=== PATIENT | female | born 2000 | race Caucasian/White ===

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

== ENCOUNTER 2019-01-17 22:00 | Outpatient (CLI) | payer OTHER ==
[~2019-01-17] VITALS: Ht 172.7 cm; Wt 85.2 kg
[~2019-01-17 22:00] MED LIST: CALC600T24 PO; CEPH-443 PO; CLOT30CR24 TOP; PREN-47 PO
[2019-01-17 23:49] VITALS: Ht 172.7 cm; Wt 85.2 kg
[2019-01-17 23:51] VITALS: BP 117/72
--- NOTE | 2019-01-18 01:48 | PN ---
Triage Information Date/Time Reason for visit: Vag spotting / bleeding Weeks of Gestation 35 weeks /Para Diabetes: none Hypertention: none Objective Vital Signs Date Temp Pulse Resp B/P (MAP) Pulse Ox O2 O2 Flow FiO2 Time Delivery Rate 01/17/19 98.5 98 20 117/72 Room Air 23:51 (87) Heart Rate: 120's Heart Rate Comments Reactive Results/Medications Result Diagram: 01/17/19 2329 Results 24 hrs Laboratory Tests Test 01/17/19 22:10 01/17/19 23:29 Urine Color YELLOW Urine Clarity SLIGHTLY CLOUDY A Urine pH 6.0 Urine Specific [place] 1.013 Urine Ketones NEGATIVE Urine Nitrite NEGATIVE Urine Bilirubin NEGATIVE Urine Urobilinogen NEGATIVE Urine Leukocyte Esterase 1+ H Urine Microscopic RBC 0 Urine Microscopic WBC 6 H Urine Squamous Epithelial Cells FEW Urine Hemoglobin 2+ H Urine Glucose NEGATIVE Urine Total Protein NEGATIVE Urine Opiates Screen Negative Urine Barbiturates Negative Urine Amphetamines Screen Negative Urine Benzodiazepines Screen Negative Urine Cocaine Screen Negative Urine Cannabinoids Negative White Blood Count 7.7 # Red Blood Count 3.31 L Hemoglobin 9.2 L Hematocrit 28.3 L Mean Corpuscular Volume 85.5 Mean Corpuscular Hemoglobin 27.8 L Mean Corpuscular Hemoglobin Concent 32.5 Red Cell Distribution Width 13.8 Platelet Count 204 Mean Platelet Volume 9.5 Immature Granulocytes % 0.400 Neutrophils % 68.8 Lymphocytes % 21.4 Monocytes % 8.0 Eosinophils % 1.0 Basophils % 0.4 Nucleated Red Blood Cells % 0.0 Immature Granulocytes # 0.030 Neutrophils # 5.3 Lymphocytes # 1.6 Monocytes # 0.6 Eosinophils # 0.1 Basophils # 0.0 Nucleated Red Blood Cells # 0.0 Imaging Results OB ultrasound normal Disposition: Discharge NELIDA ARTEAGA MD Jan 18, 2019 01:48
--- NOTE | 2019-01-18 08:52 | TRIAGE ---
OB Triage Datetime Report Generated by CPN: 01/18/2019 08:51 Datetime: 01/18/2019 01:45 Stage of : OB Triage Labor Evaluation Frequency: None Monitor Mode: External Resting Tone [place]: Relaxed Heart Rate FHR Baseline Rate: 135 Monitor Mode: External US Variability: Moderate 6-25 bpm Accelerations: 15X15 Decelerations: None Datetime: 01/18/2019 01:00 Stage of : OB Triage Labor Evaluation Frequency: Occasional Monitor Mode: External Duration (sec)2399: 40-60 Quality: Mild Pattern: Normal: <= 5 Contractions in 10 Minutes Resting Tone [place]: Relaxed Heart Rate FHR Baseline Rate: 145 Monitor Mode: External US Variability: Moderate 6-25 bpm Accelerations: 15X15 Decelerations: None Datetime: 01/18/2019 00:00 Stage of : OB Triage Labor Evaluation Frequency: Occasional Monitor Mode: External Duration (sec)2399: 40-70 Quality: Mild Pattern: Normal: <= 5 Contractions in 10 Minutes Resting Tone [place]: Relaxed Heart Rate FHR Baseline Rate: 150 Monitor Mode: External US Variability: Moderate 6-25 bpm Accelerations: 15X15 Decelerations: Variable (Annotations: possible) Datetime: 01/17/2019 23:00 Stage of : OB Triage Labor Evaluation Frequency: Irregular Monitor Mode: External Duration (sec)2399: 40-80 Quality: Mild Pattern: Normal: <= 5 Contractions in 10 Minutes Resting Tone [place]: Relaxed Heart Rate FHR Baseline Rate: 140 Monitor Mode: External US Variability: Moderate 6-25 bpm Accelerations: 15X15 Decelerations: Variable (Annotations: possible x1) Datetime: 01/17/2019 22:14 Stage of : OB Triage Assessment Type: Triage Maternal Assessment Level of Consciousness: Fully Conscious DTR's/Clonus: DTRs 2+; No Clonus Headache: Denies Blurred Vision: No Respiratory Effort: Unlabored; Regular Rhythm; Equal Expansion Breath Sounds, Left: Clear and Equal Breath Sounds, Right: Clear and Equal Nausea/Vomiting: Denies RUQ Epigastric Pain: Denies Lower Extremities Edema: None Degree: None Upper Extremities Edema: None Degree: None Facial Edema: None Temperature Route: Oral Fall Risk Assessment History of Falling: (0) No Secondary Diagnosis: (0) No Ambulatory Aid: (0) Bedrest/Nurse Assist IV Therapy: (0) No Gait: (0) Normal/Bedrest/Immobile Mental Status: (0) Oriented to Own Ability Fall Score: 0 Fall Risk Score Definition: No Risk: No action required Monitor Mode: External Contraction Comments: [place] applied Heart Rate FHR Baseline Rate: 150 Monitor Mode: External US Comments: EFM applied Pain Assessment Pain Scale: 4 Pain Presence: Intermittent Pain Type: Cramping Pain Location: Abdomen; Back Pain Relief Measures: Comfort Measures Datetime: 01/17/2019 22:11 Time of Arrival: 01/17/2019 21:54 EGA: 34.6 Arrived By: Wheelchair Arrived From: Home Chief Complaint: Post coital bleeding Movement: Present Contractions: Irregular Rupture of Membranes: Denies Vaginal Bleeding: Small Vaginal Discharge: Denies Recent Sexual Intercouse: Yes Abdominal Trauma: Not Applicable Patient Complaints: Cramping; Back Pain Time Provider Notified: 01/17/2019 23:01 Provider Notified: Initial Plan: U/S for EFW, JONATHAN, _ placenta location. UA, CBC, Type _ Screen, urine drug screen Datetime: 10/28/2018 20:30 Stage of : Antepartum Datetime: 10/28/2018 20:18 Stage of : Antepartum Datetime: 10/28/2018 20:10 Stage of : Antepartum Datetime: 10/28/2018 20:00 Stage of : Antepartum Datetime: 10/28/2018 19:40 Stage of : Antepartum Assessment Type: Ongoing Assessment Maternal Assessment Level of Consciousness: Fully Conscious DTR's/Clonus: DTRs 2+; No Clonus Headache: Denies Blurred Vision: No Respiratory Effort: Unlabored; Regular Rhythm; Equal Expansion Breath Sounds, Left: Clear and Equal Breath Sounds, Right: Clear and Equal Nausea/Vomiting: Denies RUQ Epigastric Pain: Denies Lower Extremities Edema: None Degree: None Upper Extremities Edema: None Degree: None Facial Edema: None Temperature Route: Oral Fall Risk Assessment History of Falling: (0) No Secondary Diagnosis: (0) No Ambulatory Aid: (0) Bedrest/Nurse Assist IV Therapy: (0) No Gait: (0) Normal/Bedrest/Immobile Mental Status: (0) Oriented to Own Ability Fall Score: 0 Fall Risk Score Definition: No Risk: No action required Contraction Comments: PT DENIES CRAMPING Comments: PT STATES + FM Pain Presence: None/Denies Pain Type: N/A Vaginal Exam Membrane Status: Intact Vaginal Bleeding: None Datetime: 10/28/2018 18:00 Stage of : Antepartum Labor Evaluation Frequency: 0/hr Monitor Mode: External Datetime: 10/28/2018 17:00 Stage of : Antepartum Labor Evaluation Frequency: 0/hr Monitor Mode: External Datetime: 10/28/2018 16:48 Pain Presence: None/Denies Datetime: 10/28/2018 16:09 Stage of : Antepartum Maternal Assessment Level of Consciousness: Fully Conscious Headache: Denies Nausea/Vomiting: Denies RUQ Epigastric Pain: Denies Temperature Route: Oral Resting Tone [place]: Relaxed Datetime: 10/28/2018 16:00 Stage of : Antepartum Labor Evaluation Frequency: 0/hr Monitor Mode: External Datetime: 10/28/2018 15:44 Maternal Assessment Level of Consciousness: Fully Conscious Headache: Denies Blurred Vision: No Respiratory Effort: Unlabored Nausea/Vomiting: Denies Pain Presence: None/Denies Datetime: 10/28/2018 15:00 Stage of : Antepartum Labor Evaluation Frequency: 0/hr Monitor Mode: External Datetime: 10/28/2018 14:00 Stage of : Antepartum Labor Evaluation Frequency: 0/hr Monitor Mode: External Datetime: 10/28/2018 13:00 Stage of : Antepartum Labor Evaluation Frequency: 0/hr Monitor Mode: External Datetime: 10/28/2018 12:06 Stage of : Antepartum Labor Evaluation Frequency: 0/hr Monitor Mode: External Datetime: 10/28/2018 11:44 Maternal Assessment Level of Consciousness: Fully Conscious Headache: Denies Blurred Vision: No Respiratory Effort: Unlabored Nausea/Vomiting: Denies RUQ Epigastric Pain: Denies Pain Presence: Constant Pain Assessment Comments: unchanged Datetime: 10/28/2018 11:05 Stage of : Antepartum Labor Evaluation Frequency: 0/hr Monitor Mode: External Datetime: 10/28/2018 10:10 Stage of : Antepartum Labor Evaluation Frequency: 0/hr Monitor Mode: External Monitor Mode: External US Comments: fht's 140's approp. for ega of 23.2 today Datetime: 10/28/2018 09:09 Stage of : Antepartum Maternal Assessment Level of Consciousness: Fully Conscious Headache: Denies Nausea/Vomiting: Denies RUQ Epigastric Pain: Denies Labor Evaluation Frequency: 0/hr Resting Tone [place]: Relaxed Vaginal Bleeding: None Datetime: 10/28/2018 08:19 Stage of : Antepartum Maternal Assessment Level of Consciousness: Fully Conscious Headache: Denies Nausea/Vomiting: Denies RUQ Epigastric Pain: Denies Resting Tone [place]: Relaxed Contraction Comments: pt. denies Comments: pt. acknowledges movement Vaginal Bleeding: None Datetime: 10/28/2018 07:22 Pain Presence: Constant Pain Type: Dull Pain Location: Right Flank; Left Flank Pain Relief Measures: Comfort Measures Datetime: 10/28/2018 07:20 Stage of : Antepartum Temperature Route: Oral Datetime: 10/28/2018 06:07 Stage of : Antepartum Temperature Route: Oral Pain Presence: None/Denies Datetime: 10/27/2018 22:05 Heart Rate FHR Baseline Rate: 145 Monitor Mode: External US Datetime: 10/27/2018 19:29 Stage of : Antepartum Assessment Type: Ongoing Assessment Maternal Assessment Level of Consciousness: Fully Conscious DTR's/Clonus: DTRs 2+; No Clonus Headache: Denies Blurred Vision: No Respiratory Effort: Unlabored; Regular Rhythm; Equal Expansion Breath Sounds, Left: Clear and Equal Breath Sounds, Right: Clear and Equal Nausea/Vomiting: Denies RUQ Epigastric Pain: Denies Lower Extremities Edema: None Degree: None Upper Extremities Edema: None Degree: None Facial Edema: None Temperature Route: Oral Fall Risk Assessment History of Falling: (0) No Secondary Diagnosis: (0) No Ambulatory Aid: (0) Bedrest/Nurse Assist IV Therapy: (0) No Gait: (0) Normal/Bedrest/Immobile Mental Status: (0) Oriented to Own Ability Fall Score: 0 Fall Risk Score Definition: No Risk: No action required Pain Presence: None/Denies Datetime: 10/27/2018 18:25 Pain Presence: Constant Pain Type: Dull Pain Location: Right Flank; Left Flank Pain Assessment Comments: decreased rebound tenderness when dr. eshaghian palpated lft. and rt. fla nk area Datetime: 10/27/2018 18:00 Stage of : Antepartum Headache: Denies Nausea/Vomiting: Denies RUQ Epigastric Pain: Denies Labor Evaluation Frequency: 0/hr Resting Tone [place]: Relaxed Pain Assessment Pain Scale: 0 Pain Presence: None/Denies Datetime: 10/27/2018 17:00 Stage of : Antepartum Headache: Denies Nausea/Vomiting: Denies RUQ Epigastric Pain: Denies Labor Evaluation Frequency: 0/hr Resting Tone [place]: Relaxed Pain Assessment Pain Scale: 0 Pain Presence: None/Denies Datetime: 10/27/2018 16:00 Stage of : Antepartum Headache: Denies Nausea/Vomiting: Denies RUQ Epigastric Pain: Denies Labor Evaluation Frequency: 0/hr Resting Tone [place]: Relaxed Pain Assessment Pain Scale: 0 Pain Presence: None/Denies Pain Assessment Comments: pt. sleeping when rn entered room w/out labored breathing. pt.'s mother i s at bedside Datetime: 10/27/2018 15:18 Stage of : Antepartum Maternal Assessment Level of Consciousness: Fully Conscious Headache: Denies Blurred Vision: No Respiratory Effort: Unlabored Nausea/Vomiting: Denies RUQ Epigastric Pain: Denies Labor Evaluation Frequency: 0/hr Monitor Mode: Palpation Resting Tone [place]: Relaxed Pain Assessment Pain Scale: 2 Pain Presence: Constant Pain Type: Ache Pain Location: Right Flank; Left Flank Datetime: 10/27/2018 14:00 Stage of : Antepartum Maternal Assessment Level of Consciousness: Fully Conscious Headache: Denies Nausea/Vomiting: Denies Labor Evaluation Frequency: 0/hr Resting Tone [place]: Relaxed Pain Assessment Pain Scale: 3 Pain Presence: Constant Pain Type: Ache Pain Location: Right Flank; Left Flank Vaginal Bleeding: None Datetime: 10/27/2018 13:29 Pain Presence: Constant Pain Assessment Comments: unchanged Datetime: 10/27/2018 13:14 Stage of : Antepartum Maternal Assessment Level of Consciousness: Fully Conscious Headache: Denies Respiratory Effort: Unlabored Nausea/Vomiting: Denies RUQ Epigastric Pain: Denies Labor Evaluation Frequency: 0/hr Resting Tone [place]: Relaxed Pain Assessment Pain Scale: 3 Pain Presence: Constant Pain Type: Ache Pain Location: Right Flank; Left Flank Pain Assessment Comments: same Vaginal Bleeding: None Datetime: 10/27/2018 12:00 Stage of : Antepartum Maternal Assessment Level of Consciousness: Fully Conscious Headache: Denies Nausea/Vomiting: Denies Labor Evaluation Frequency: 0/hr Resting Tone [place]: Relaxed Pain Assessment Pain Scale: 3 Pain Presence: Constant Pain Type: Ache Pain Location: Right Flank; Left Flank Vaginal Bleeding: None Datetime: 10/27/2018 10:53 Resting Tone [place]: Relaxed Heart Rate FHR Baseline Rate: 145 Comments: fht's 140's approp. for ega of 23.1 today Pain Presence: Constant Pain Type: Ache Pain Assessment Comments: pain unchanged but has improved per pt. since admission. pt. has visitors at this time and denies any distress or complaints Datetime: 10/27/2018 10:29 Resting Tone [place]: Relaxed Monitor Mode: External US Comments: ega 23.1 Datetime: 10/27/2018 10:28 Maternal Assessment Level of Consciousness: Fully Conscious Headache: Denies Blurred Vision: No Respiratory Effort: Unlabored Nausea/Vomiting: Denies RUQ Epigastric Pain: Denies Pain Presence: Constant Pain Type: Ache Pain Location: Right Flank; Left Flank Datetime: 10/27/2018 09:30 Stage of : Antepartum Maternal Assessment Level of Consciousness: Fully Conscious Headache: Denies Nausea/Vomiting: Denies Resting Tone [place]: Relaxed Pain Assessment Pain Scale: 3 Pain Presence: Constant Pain Type: Ache Pain Location: Right Flank; Left Flank Vaginal Bleeding: None Datetime: 10/27/2018 08:14 Stage of : Antepartum Maternal Assessment Level of Consciousness: Fully Conscious Headache: Denies Nausea/Vomiting: Denies RUQ Epigastric Pain: Denies Temperature Route: Oral Resting Tone [place]: Relaxed Contraction Comments: pt. denies uc's or cramping at this time Comments: ega 23.1 nst q shift Pain Assessment Pain Scale: 3 Pain Presence: Constant Pain Type: Ache Pain Location: Right Flank; Left Flank Vaginal Exam Membrane Status: Intact Vaginal Bleeding: None Datetime: 10/27/2018 07:44 Assessment Type: Ongoing Assessment Maternal Assessment Level of Consciousness: Fully Conscious DTR's/Clonus: DTRs 2+; No Clonus Headache: Denies Blurred Vision: No Respiratory Effort: Unlabored; Regular Rhythm; Equal Expansion Breath Sounds, Left: Clear and Equal Breath Sounds, Right: Clear and Equal Nausea/Vomiting: Denies RUQ Epigastric Pain: Denies Lower Extremities Edema: None Degree: None Upper Extremities Edema: None Degree: None Facial Edema: None Fall Risk Assessment History of Falling: (0) No Secondary Diagnosis: (0) No Ambulatory Aid: (0) Bedrest/Nurse Assist IV Therapy: (20) Yes Gait: (0) Normal/Bedrest/Immobile Mental Status: (0) Oriented to Own Ability Fall Score: 20 Fall Risk Score Definition: No Risk: No action required Datetime: 10/27/2018 07:19 Resting Tone [place]: Relaxed Contraction Comments: pt. denies at this time Pain Assessment Pain Scale: 2 Pain Presence: Constant Pain Type: Ache Pain Location: Right Flank; Left Flank Pain Relief Measures: Comfort Measures Datetime: 10/27/2018 05:21 Stage of : Antepartum Maternal Assessment Level of Consciousness: Fully Conscious Headache: Denies Blurred Vision: No Respiratory Effort: Unlabored; Regular Rhythm; Equal Expansion Breath Sounds, Left: Clear and Equal Breath Sounds, Right: Clear and Equal Temperature Route: Oral Pain Presence: None/Denies Datetime: 10/27/2018 00:39 Stage of : Antepartum Temperature Route: Oral Monitor Mode: Doppler (Annotations: FHT'S 155) Pain Presence: None/Denies Datetime: 10/26/2018 20:45 Stage of : Antepartum Assessment Type: Ongoing Assessment Maternal Assessment Level of Consciousness: Fully Conscious DTR's/Clonus: DTRs 2+; No Clonus Headache: Denies Blurred Vision: No Respiratory Effort: Unlabored; Regular Rhythm; Equal Expansion Breath Sounds, Left: Clear and Equal Breath Sounds, Right: Clear and Equal Nausea/Vomiting: Denies RUQ Epigastric Pain: Denies Lower Extremities Edema: None Degree: None Upper Extremities Edema: None Degree: None Facial Edema: None Temperature Route: Oral Fall Risk Assessment History of Falling: (0) No Secondary Diagnosis: (0) No Ambulatory Aid: (0) Bedrest/Nurse Assist IV Therapy: (0) No Gait: (0) Normal/Bedrest/Immobile Mental Status: (0) Oriented to Own Ability Fall Score: 0 Fall Risk Score Definition: No Risk: No action required Monitor Mode: Palpation (Annotations: PT DENIES FEELING ANY UC'S) Pain Presence: Intermittent Pain Type: Ache (Annotations: SORE THROAT.) Pain Location: Other Pain Relief Measures: Pain Medication Given (Annotations: 650 MG TYLENOL PO GIVEN.) Datetime: 10/26/2018 18:32 EGA: 23.0 Datetime: 10/26/2018 18:22 Fall Score: 0 Fall Risk Score Definition: No Risk: No action required
== END 2019-01-18 01:56 | disposition home or self-care (01) ==
LOC: OBT 22:00 → L-D 22:02 → OBT 01-18 01:56
PROVIDERS: ATTEND Obstetrics & Gynecology
DX: O46.8X3 Other antepartum hemorrhage, third trimester (principal); Z3A.35 35 weeks gestation of pregnancy
CPT/HCPCS: 76815; 80307; 81001; 85025; 86850; 86900; 86901; Z7500; G0463

== ENCOUNTER 2019-02-12 18:02 | Outpatient (CLI) | payer OTHER ==
[~2019-02-12] VITALS: Ht 172.7 cm; Wt 86.2 kg
[~2019-02-12 18:02] MED LIST changes: -CEPH-443 PO; -CLOT30CR24 TOP
[2019-02-12 18:39] VITALS: BP 112/62; PULSE 86; Ht 172.7 cm; Wt 86.2 kg
--- NOTE | 2019-02-12 22:00 | PN ---
Triage Information Date/Time Reason for visit: DFM Weeks of Gestation 18-year-old 1 para 0 at 38 weeks and 4 days of gestation with estimated date of delivery March 21, 2019 Patient presents with chief complaint of decreased movement She denies vaginal bleeding or leaking fluid; she denies uterine contractions Patient reports complicated with urinary tract infection earlier /Para 1 para 0 Diabetes: none Hypertention: none Objective Vital Signs Date Temp Pulse Resp B/P (MAP) Pulse Ox O2 O2 Flow FiO2 Time Delivery Rate 02/12/19 98.4 86 112/62 18:39 (79) Heart Rate: 140's Heart Rate Comments heart rate tracing category 1 Contractions: None Exam Cervix closed per nurse Results/Medications Imaging Results PROCEDURE: US OB biophysical profile. CLINICAL INDICATION: contractions TECHNIQUE: Multiple sonographic images of the pelvis were obtained. The images were reviewed on a PACS workstation. COMPARISON: No prior studies are available for comparison. FINDINGS: Gestation: Single live intrauterine gestation. Cardiac activity: 139 beats per minute. Presentation: Vertex. Placenta: Location: Posterior Appearance: No previa or abruption. Amniotic Fluid: JONATHAN = 10.0 cm Biophysical profile: - movement = 2/2 - tone = 2/2 - breathing = 2/2 - JONATHAN = 2/2 Total = 8/8 IMPRESSION: Normal biophysical profile. RPTAT: AA . Physician Varsha Date Time Electronically viewed and signed by Physician Varsha on 02/12/2019 20:52 RB/ CC: ABDULKADIR KAMARA MD [phone] Disposition: Discharge Assessment/Plan Patient reports positive movement here in triage kick count instructions were given Labor precautions were given Patient instructed to return in 48 hours for repeat NST and BPP Patient instructed to follow-up with her own [facility] in 1 to 2 days NICO FIELDS MD February 12, 2019 21:54
--- NOTE | 2019-02-12 23:42 | TRIAGE ---
OB Triage Datetime Report Generated by CPN: 02/12/2019 23:42 Datetime: 02/12/2019 21:00 Stage of : OB Triage Labor Evaluation Frequency: X0 Monitor Mode: External Duration (sec)2399: X0 Pattern: Normal: <= 5 Contractions in 10 Minutes Resting Tone [place]: Relaxed Heart Rate FHR Baseline Rate: 135 Monitor Mode: External US Variability: Moderate 6-25 bpm Accelerations: 15X15 Decelerations: None Category: Category I Datetime: 02/12/2019 20:04 Vaginal Exam Dilatation (cms): 0.0 Effacement (%): 0 Station: -3 Exam By: C DEB Cervix, Consistency: Firm Datetime: 02/12/2019 20:00 Stage of : OB Triage Labor Evaluation Frequency: X0 Monitor Mode: External Duration (sec)2399: X0 Pattern: Normal: <= 5 Contractions in 10 Minutes Resting Tone [place]: Relaxed Heart Rate FHR Baseline Rate: 135 Monitor Mode: External US Variability: Moderate 6-25 bpm Accelerations: 15X15 Decelerations: None Category: Category I Datetime: 02/12/2019 19:45 Stage of : OB Triage Datetime: 02/12/2019 18:49 Pattern: Normal: <= 5 Contractions in 10 Minutes Resting Tone [place]: Relaxed Contraction Comments: no uc Heart Rate FHR Baseline Rate: 145 Monitor Mode: External US Variability: Moderate 6-25 bpm Accelerations: 15X15 Decelerations: None Category: Category I Datetime: 02/12/2019 18:44 Assessment Type: Triage Maternal Assessment Level of Consciousness: Fully Conscious DTR's/Clonus: DTRs 2+; No Clonus Headache: Denies Blurred Vision: No Respiratory Effort: Unlabored; Regular Rhythm; Equal Expansion Breath Sounds, Left: Clear and Equal Breath Sounds, Right: Clear and Equal Nausea/Vomiting: Denies RUQ Epigastric Pain: Denies Lower Extremities Edema: None Degree: None Upper Extremities Edema: None Degree: None Facial Edema: None Fall Risk Assessment History of Falling: (0) No Secondary Diagnosis: (0) No Ambulatory Aid: (0) Bedrest/Nurse Assist IV Therapy: (0) No Gait: (0) Normal/Bedrest/Immobile Mental Status: (0) Oriented to Own Ability Fall Score: 0 Fall Risk Score Definition: No Risk: No action required Datetime: 02/12/2019 18:43 Time of Arrival: 02/12/2019 17:52 EGA: 38.4 Arrived By: Ambulatory Arrived From: Home Chief Complaint: C/O UC last night, spotting this am, also c/o decreased fm today Movement: Decreased Contractions: Irregular Rupture of Membranes: Denies Vaginal Bleeding: None Vaginal Discharge: Denies Recent Sexual Intercouse: Denies Abdominal Trauma: Not Applicable Patient Complaints: Other Time Provider Notified: 02/12/2019 18:45 Provider Notified: Initial Plan: r/o labor, nst, bpp Datetime: 01/18/2019 01:43 Stage of : OB Triage Datetime: 01/18/2019 01:34 Stage of : OB Triage Datetime: 01/18/2019 00:58 Stage of : OB Triage Datetime: 01/18/2019 00:42 Stage of : OB Triage Datetime: 01/17/2019 23:23 Stage of : OB Triage Datetime: 01/17/2019 22:14 Fall Score: 0 Fall Risk Score Definition: No Risk: No action required Vaginal Bleeding: Scant (Annotations: Brownish discharge noted on panty liner) Datetime: 01/17/2019 22:11 EGA: 34.6 Datetime: 10/28/2018 19:40 Fall Score: 0 Fall Risk Score Definition: No Risk: No action required Datetime: 10/27/2018 19:29 Fall Score: 0 Fall Risk Score Definition: No Risk: No action required Datetime: 10/27/2018 07:44 Fall Score: 20 Fall Risk Score Definition: No Risk: No action required Datetime: 10/26/2018 20:45 Fall Score: 0 Fall Risk Score Definition: No Risk: No action required Datetime: 10/26/2018 18:32 EGA: 23.0 Datetime: 10/26/2018 18:22 Fall Score: 0 Fall Risk Score Definition: No Risk: No action required
== END 2019-02-12 21:40 | disposition home or self-care (01) ==
LOC: OBT 18:02 → L-D 18:03 → OBT 21:40
PROVIDERS: ATTEND Obstetrics & Gynecology
DX: O36.8130 Decreased fetal movements, third trimester, not applicable or unspecified (principal); Z3A.38 38 weeks gestation of pregnancy
CPT/HCPCS: 76818; Z7500; G0463

== ENCOUNTER 2019-02-14 12:36 | Outpatient (CLI) | payer OTHER ==
[~2019-02-14] VITALS: Ht 172.7 cm; Wt 86.4 kg
[2019-02-14 13:10] VITALS: Ht 172.7 cm; Wt 86.4 kg
--- NOTE | 2019-02-14 15:47 | TRIAGE ---
OB Triage Datetime Report Generated by CPN: 02/14/2019 15:46 Datetime: 02/14/2019 15:35 Stage of : OB Triage Level of Consciousness: Fully Conscious DTR's/Clonus: DTRs 1+ Headache: Denies Breath Sounds, Left: Clear and Equal Breath Sounds, Right: Clear and Equal Nausea/Vomiting: Denies RUQ Epigastric Pain: Denies Frequency: NONE Monitor Mode: External Resting Tone [place]: Relaxed FHR Baseline Rate: 135 Monitor Mode: External US Variability: Moderate 6-25 bpm Accelerations: 15X15 Decelerations: None Category: Category I Pain Scale: 0 Pain Presence: None/Denies Pain Type: N/A Pain Goal: 3 Membrane Status: Intact Datetime: 02/14/2019 14:54 Stage of : OB Triage Level of Consciousness: Fully Conscious DTR's/Clonus: DTRs 1+ Headache: Denies Breath Sounds, Left: Clear and Equal Breath Sounds, Right: Clear and Equal Nausea/Vomiting: Denies RUQ Epigastric Pain: Denies Frequency: NONE Monitor Mode: External Resting Tone [place]: Relaxed FHR Baseline Rate: 135 Monitor Mode: External US Variability: Moderate 6-25 bpm Accelerations: 15X15 Decelerations: None Pain Scale: 0 Pain Presence: None/Denies Pain Type: N/A Pain Goal: 3 Membrane Status: Intact Datetime: 02/14/2019 14:13 Level of Consciousness: Fully Conscious DTR's/Clonus: DTRs 1+ Headache: Denies Blurred Vision: No Respiratory Effort: Unlabored Breath Sounds, Left: Clear and Equal Breath Sounds, Right: Clear and Equal Nausea/Vomiting: Denies RUQ Epigastric Pain: Denies Facial Edema: None Frequency: NONE Monitor Mode: External Resting Tone [place]: Relaxed FHR Baseline Rate: 135 Monitor Mode: External US Variability: Moderate 6-25 bpm Accelerations: 15X15 Decelerations: None Category: Category I Pain Scale: 0 Pain Presence: None/Denies Pain Type: N/A Pain Goal: 3 Membrane Status: Intact Datetime: 02/14/2019 13:24 Level of Consciousness: Fully Conscious DTR's/Clonus: DTRs 1+ Headache: Denies Blurred Vision: No Respiratory Effort: Unlabored Breath Sounds, Left: Clear and Equal Breath Sounds, Right: Clear and Equal Nausea/Vomiting: Denies RUQ Epigastric Pain: Denies Facial Edema: None Monitor Mode: External Resting Tone [place]: Relaxed FHR Baseline Rate: 145 Monitor Mode: External US Variability: Moderate 6-25 bpm Decelerations: None Category: Category I Pain Scale: 0 Pain Presence: None/Denies Pain Type: N/A Pain Goal: 3 Membrane Status: Intact Datetime: 02/14/2019 13:13 Assessment Type: Triage Level of Consciousness: Fully Conscious DTR's/Clonus: DTRs 2+; No Clonus Headache: Denies Blurred Vision: No Respiratory Effort: Unlabored; Regular Rhythm; Equal Expansion Breath Sounds, Left: Clear and Equal Breath Sounds, Right: Clear and Equal Nausea/Vomiting: Denies RUQ Epigastric Pain: Denies Lower Extremities Edema: None Degree: None Upper Extremities Edema: None Degree: None Facial Edema: None History of Falling: (0) No Secondary Diagnosis: (0) No Ambulatory Aid: (0) Bedrest/Nurse Assist IV Therapy: (0) No Gait: (0) Normal/Bedrest/Immobile Mental Status: (0) Oriented to Own Ability Fall Score: 0 Fall Risk Score Definition: No Risk: No action required Datetime: 02/14/2019 13:12 Time of Arrival: 02/14/2019 13:12 EGA: 38.6 Arrived By: Ambulatory Arrived From: Home Chief Complaint: NST AND BPP FOR DFM AND PTL Movement: Present Contractions: Denies/Absent Rupture of Membranes: Denies Vaginal Discharge: Denies Recent Sexual Intercouse: Denies Abdominal Trauma: Not Applicable Additional Patient Complaints: NONE Time Provider Notified: 02/14/2019 13:30 Provider Notified: DEVIN Initial Plan: NST, BPP AND VE
--- NOTE | 2019-02-14 15:48 | PN ---
Triage Information Date/Time February 14, 2019 Reason for visit: DFM Weeks of Gestation 38w 6d /Para 1/0 Diabetes: none Hypertention: none Additional information Pt is here for f/u of a prior visit for decreased movement. +FM. No UC's. PMHx: none. PSHx: none. NKDA Objective BP 94/68 Heart Rate: 130's Heart Rate Comments Accels to 160 BPM. No decels. Contractions: None Results/Medications Imaging Results BPP 8/ JONATHAN 11.9 Disposition: Discharge Assessment/Plan A: IUP at 38w 6d. F/u decreased movement. P: D/C home. Reviewed kick counts with the pt. Pt does not need to return for any more NST's. Keep appt with Dr Ramos 02/17, as scheduled. FRANCHESCA BELTRAN MD February 14, 2019 15:48
== END 2019-02-14 15:39 | disposition home or self-care (01) ==
LOC: OBT 12:36 → L-D 12:37 → OBT 15:39
PROVIDERS: ATTEND Obstetrics & Gynecology
DX: O36.8130 Decreased fetal movements, third trimester, not applicable or unspecified (principal); Z3A.38 38 weeks gestation of pregnancy
CPT/HCPCS: 76818; Z7500; G0463

== ENCOUNTER 2019-02-17 03:20 | Inpatient (IN) | payer OTHER ==
[~2019-02-17] VITALS: Ht 172.7 cm; Wt 86.3 kg
[2019-02-17 03:16] VITALS: Ht 172.7 cm; Wt 86.3 kg
[2019-02-17 03:32] VITALS: BP 127/76; PULSE 19; RESP 19
[2019-02-17] MEDS ORDERED: FER325 PO (03:40)
[2019-02-17] MEDS ORDERED: AMPICILLIN 2 GM/NS (PMX) 100 ML IV ONE (04:00)
[2019-02-17] MEDS ORDERED: OXYCODONE/ASPIRIN (4.88/325) TAB PO PRN ×3 (04:00→08:30)
[2019-02-17] MEDS ORDERED: FENTAnyl 50 MCG/ML VIAL IV PRN (04:00)
[2019-02-17] MEDS ORDERED: IBUPROFEN 600 MG TAB PO PRN (04:00)
[2019-02-17] MEDS ORDERED: LIDOCAINE 1% (MPF) 30 ML INJ INJ PRN (04:00)
[2019-02-17] MEDS ORDERED: OXYTOCIN 30 UNITS/LR 500 ML IV PRN ×2 (04:00→08:30)
[2019-02-17] MEDS ORDERED: MISOPROSTOL 200 MCG TAB PR PRN ×2 (04:00→08:30)
[2019-02-17] MEDS ORDERED: METHYLERGONOVINE 0.2 MG INJ IM PRN ×2 (04:00→08:30)
[2019-02-17] MEDS ORDERED: OXYTOCIN 30 UNITS/LR 500 ML IV SCH ×3 (04:00→08:16)
[2019-02-17] MEDS ORDERED: CARBOPROST 250 MCG INJ IM PRN ×2 (04:00→08:30)
[2019-02-17] MEDS ORDERED: BUTORPHANOL 2 MG INJ IV PRN (04:00)
[2019-02-17] MEDS: LACTATED RINGER'S 1,000 ML IV SCH ×3 (04:10→17:38)
[2019-02-17] MEDS ORDERED: FENTAnyl 2MCG/ML-ROPIV 0.2% 100 ML ONE (04:46)
--- NOTE | 2019-02-17 04:49 | PREAC ---
Date/Time of Note Date/Time of Note DATE: 02/17/19 TIME: 04:48 Anesthesia Eval and Record Evaluation Time Pre-Procedure Interview DATE: 02/17/19 TIME: 04:48 Age 18 Sex female NPO: Other (na ) Preoperative diagnosis labor pain Planned procedure epidural Past Medical History Past Medical History: None Surgery & Anesthesia Issues No known issue Meds Anticoagulation: No Beta Armani within 24 hr: No Reason Beta Armani not given: Pt. not on B-Armani Reported Medications Ferrous Sulfate* (Ferrous Sulfate*) 325 Mg Tabec, 325 MG PO DAILY, TAB 02/17/19 Calcium Carbonate* (Calcium Carbonate*) 600 MG Ca Tab, 600 MG PO, TAB 10/26/18 [id number]-Kandq Acid (Prenata Chewable) 1 Each Tab.chew, 1 TAB PO DAILY, TAB.CHEW 10/26/18 Current Medications Lactated Ringer's 1,000 ml @ 125 mls/hr Q8H IV Last administered on 02/17/19at 04:10; Admin Dose 125 MLS/HR; Start 02/17/19 at 03:47 Ampicillin 100 ml @ 100 mls/hr ONCE ONCE IV Last administered on 02/17/19at 04:25; Admin Dose 100 MLS/HR; Start 02/17/19 at 04:00; Stop 02/17/19 at 04:59 Ampicillin 50 ml @ 100 mls/hr Q4H IV ; Start 02/17/19 at 08:00 Butorphanol Tartrate (Stadol) 2 mg Q2H PRN IV .PAIN SCALE 6-10; Start 02/17/19 at 04:00 Fentanyl (Sublimaze) 25 mcg Q3H PRN IV .PAIN; Start 02/17/19 at 04:00 Lidocaine (Xylocaine 1% (Mpf)) 30 ml ONCE PRN INJ .EPISIOTOMY; Start 02/17/19 at 04:00 Oxytocin/Lactated Ringer's 500 ml @ 500 mls/hr ONCE POST IV ; Start 02/17/19 at 04:00 Oxytocin/Lactated Ringer's 500 ml @ 125 mls/hr POST IV ; Start 02/17/19 at 04:00 Ibuprofen (Motrin) 600 mg ONCE PRN PO .PAIN 1-5; Start 02/17/19 at 04:00 Oxycodone/Aspirin (Percodan) 2 tab ONCE PRN PO .PAIN 6-10; Start 02/17/19 at 04:00 Oxytocin/Lactated Ringer's 500 ml @ 0 mls/hr ONCE PRN IV .VAGINAL BLEEDING; St art 02/17/19 at 04:00 Methylergonovine Maleate (Methergine) 0.2 mg ONCE PRN IM .VAGINAL BLEEDING; Start 02/17/19 at 04:00 Carboprost Tromethamine (Hemabate) 250 mcg ONCE PRN IM .VAGINAL BLEEDING; Start 02/17/19 at 04:00 Misoprostol (Cytotec) 1,000 mcg ONCE PRN [place] .VAGINAL BLEEDING; Start 02/17/19 at 04:00 Meds reviewed: Yes Allergies Coded Allergies: No Known Allergy (Unverified , 02/17/19) Allergies Reviewed: Yes Labs/Studies Labs Reviewed: Reviewed by anesthesiologist test: N/A Pre-procedure Exam Last vitals Vital Signs Date Temp Pulse Resp B/P (MAP) Pulse Ox O2 O2 Flow FiO2 Time Delivery Rate 02/17/19 98.3 19 19 127/76 Room Air 03:32 (93) Airway: Adequate mouth opening, Adequate thyromental dist Mallampati: Mallampati III Teeth: Normal Lung: Normal Heart: Normal ASA Physical Status ASA physical status: 2 Emergency: None Pre-operative Attestations Prior to commencing anesthesia and surgery, the patient was re-evaluated, there was verification of: *The patient's identity *The results of appropriate recent lab work and preoperative vital signs *The above evaluation not changing prior to induction *Anesthetic plan, risk benefits, alternative and complications discussed with patient/family; questions answered; patient/family understands, accepts and wishes to proceed. FANNIE DUMONT DO February 17, 2019 04:49
[2019-02-17] MEDS ORDERED: FENTAnyl 2MCG/ML-ROPIV 0.2% 100 ML BAG EPI SCH (05:00)
[2019-02-17] MEDS ORDERED: NALOXONE (0.4 MG/ML) INJ IV PRN (05:00)
--- NOTE | 2019-02-17 05:49 | TRIAGE ---
OB Triage Datetime Report Generated by CPN: 02/17/2019 05:48 Datetime: 02/17/2019 05:26 Labor Evaluation Frequency: 2-3 Monitor Mode: External Duration (sec)2399: 50-70 Quality: Moderate Pattern: Normal: <= 5 Contractions in 10 Minutes Resting Tone [place]: Relaxed Heart Rate FHR Baseline Rate: 145 Monitor Mode: External US FHR Baseline Changes: No Baseline Change Variability: Moderate 6-25 bpm Accelerations: 15X15 Decelerations: None Category: Category I Datetime: 02/17/2019 05:20 Vaginal Exam Dilatation (cms): 8.5 Effacement (%): 100 Station: -1 Exam By: DR. OLIVARES Membrane Status: Ruptured Membranes Rupture Method: Artificial Amniotic Fluid Color: Clear Amniotic Fluid Amount: Moderate Datetime: 02/17/2019 04:26 Stage of : Labor Assessment Type: Admission Assessment Maternal Assessment Level of Consciousness: Fully Conscious DTR's/Clonus: DTRs 2+; No Clonus Headache: Denies Blurred Vision: No Respiratory Effort: Unlabored; Regular Rhythm; Equal Expansion Breath Sounds, Left: Clear and Equal Breath Sounds, Right: Clear and Equal Nausea/Vomiting: Denies RUQ Epigastric Pain: Denies Lower Extremities Edema: None Degree: None Upper Extremities Edema: None Degree: None Facial Edema: None Fall Risk Assessment History of Falling: (0) No Secondary Diagnosis: (0) No Ambulatory Aid: (0) Bedrest/Nurse Assist IV Therapy: (20) Yes Gait: (0) Normal/Bedrest/Immobile Mental Status: (0) Oriented to Own Ability Fall Score: 20 Fall Risk Score Definition: No Risk: No action required Pain Assessment Pain Scale: 9 Pain Presence: Intermittent Pain Type: Contraction Pain Location: Abdomen; Back Pain Goal: 0 Datetime: 02/17/2019 04:21 Stage of : Labor Vaginal Exam Dilatation (cms): 6.5 Effacement (%): 90 Station: -2 Exam By: DR. OLIVARES Datetime: 02/17/2019 04:20 Labor Evaluation Frequency: 2-3 Monitor Mode: External Duration (sec)2399: 50-60 Quality: Moderate Pattern: Normal: <= 5 Contractions in 10 Minutes Resting Tone [place]: Relaxed Heart Rate FHR Baseline Rate: 145 Monitor Mode: External US FHR Baseline Changes: No Baseline Change Variability: Moderate 6-25 bpm Accelerations: 15X15 Decelerations: None Category: Category I Datetime: 02/17/2019 04:10 Time of Arrival: 02/17/2019 04:10 EGA: 39.2 Arrived By: Ambulatory Arrived From: TRIAGE Datetime: 02/17/2019 04:00 Labor Evaluation Frequency: 2-4 Monitor Mode: External Duration (sec)2399: 60-110 Quality: Moderate (Annotations: by palpation) Pattern: Normal: <= 5 Contractions in 10 Minutes Resting Tone [place]: Relaxed Heart Rate FHR Baseline Rate: 140 Monitor Mode: External US Variability: Moderate 6-25 bpm Accelerations: 15X15 Decelerations: Early Category: Category I Datetime: 02/17/2019 03:43 Vaginal Exam Dilatation (cms): 5.0 Effacement (%): 90 Station: -2 Exam By: Joanna Wise RN Membrane Status: Intact Vaginal Bleeding: None Cervix, Consistency: Soft Cervix, Position: Midposition Presentation 'A': Cephalic Datetime: 02/17/2019 03:32 Stage of : OB Triage Assessment Type: Triage Maternal Assessment Level of Consciousness: Fully Conscious DTR's/Clonus: DTRs 2+; No Clonus Headache: Denies Blurred Vision: No Respiratory Effort: Unlabored; Regular Rhythm; Equal Expansion Breath Sounds, Left: Clear and Equal Breath Sounds, Right: Clear and Equal Nausea/Vomiting: Present RUQ Epigastric Pain: Denies Lower Extremities Edema: None Degree: None Upper Extremities Edema: None Degree: None Facial Edema: None Temperature Route: Oral Fall Risk Assessment History of Falling: (0) No Secondary Diagnosis: (0) No Ambulatory Aid: (0) Bedrest/Nurse Assist IV Therapy: (0) No Gait: (0) Normal/Bedrest/Immobile Mental Status: (0) Oriented to Own Ability Fall Score: 0 Fall Risk Score Definition: No Risk: No action required Comments: Patient states she feels active movement Pain Assessment Pain Scale: 8 Pain Presence: Intermittent Pain Type: Contraction Pain Location: Abdomen Pain Relief Measures: Comfort Measures Datetime: 02/17/2019 03:30 Monitor Mode: External (Annotations: applied) Quality: Moderate (Annotations: by palpation) Resting Tone [place]: Relaxed Monitor Mode: External US (Annotations: applied) Datetime: 02/17/2019 03:16 Time of Arrival: 02/17/2019 03:16 EGA: 39.2 Arrived By: Ambulatory Arrived From: Home Chief Complaint: Contractions Q5-15minutes since 02/16/19 at 2230 Movement: Present Contractions: Irregular Time Contractions Began: 02/16/2019 22:30 Contractions: Q5-10minutes per patient Rupture of Membranes: Denies Vaginal Bleeding: None Vaginal Discharge: Present Recent Sexual Intercouse: Denies Abdominal Trauma: Not Applicable Patient Complaints: Contractions Time Provider Notified: 02/17/2019 03:20 Provider Notified: Dr. Olivares Initial Plan: EFM x2, SVE Datetime: 02/14/2019 13:13 Fall Score: 0 Fall Risk Score Definition: No Risk: No action required Datetime: 02/14/2019 13:12 EGA: 38.6 Datetime: 02/12/2019 18:44 Fall Score: 0 Fall Risk Score Definition: No Risk: No action required Datetime: 02/12/2019 18:43 EGA: 38.4 Datetime: 01/17/2019 22:14 Fall Score: 0 Fall Risk Score Definition: No Risk: No action required Datetime: 01/17/2019 22:11 EGA: 34.6 Datetime: 10/28/2018 19:40 Fall Score: 0 Fall Risk Score Definition: No Risk: No action required Datetime: 10/27/2018 19:29 Fall Score: 0 Fall Risk Score Definition: No Risk: No action required Datetime: 10/27/2018 07:44 Fall Score: 20 Fall Risk Score Definition: No Risk: No action required Datetime: 10/26/2018 20:45 Fall Score: 0 Fall Risk Score Definition: No Risk: No action required Datetime: 10/26/2018 18:32 EGA: 23.0 Datetime: 10/26/2018 18:22 Fall Score: 0 Fall Risk Score Definition: No Risk: No action required Membranes Ruptured Date/Time: 02/17/2019 05:20 Amniotic Fluid Odor: None
[2019-02-17] MEDS ORDERED: AMPICILLIN 1 GM/NS (PMX) 50 ML IV SCH (08:00)
--- NOTE | 2019-02-17 08:16 | LDN ---
Date/Time of Note Date/Time of Note DATE: 02/17/19 TIME: 08:14 Delivery Summary Weeks of Gestation 38 Placenta Delivered: Spontaneously Episiotomy: No Perineal laceration: 1 Laceration repair: 1st degree perineal laceration repair with 2-0 and 3-0 chromic rt labia minora laceration repair with 4-0 chromic Anesthesia type: Epidural Estimated blood loss: 200 Sponge & Needle done & correct: Yes All needle counts correct: Yes Any foreign bodies felt in the: No Delivery Information Sex Infant Sex: female Apgars 1 Minute: 9 5 Minute: 9 Suctioning Nose & mouth suctioned at lauren: No Delee suction performed: No Umbilical Cord Umbilical cord with: 3 Vessels Cord presentations: no nuchal cord Cord Blood was obtained: Yes ABDULKADIR KAMARA MD February 17, 2019 08:15
--- NOTE | 2019-02-17 08:25 | PREOPHP ---
DATE OF ADMISSION: 02/17/2019 HISTORY OF PRESENT ILLNESS: Ms. Callie Pabon is a 18-year-old 1, para 0, EDC 9 intrauterine at 39 weeks and 2 days gestational age, presented to triage in labor. She r eports of having contractions since early this morning. She denies any vaginal bleeding or discharge . Her care took place at [facility]. PAST MEDICAL HISTORY: Asthma. MEDICATIONS: vitamins. PAST SURGICAL HISTORY: None. OBSTETRIC HISTORY: Primigravida. GYNECOLOGIC HISTORY: 11, regular 3 to 4 days. She denies any sexually transmitted infections. Sexu ally active with 1 partner. SOCIAL HISTORY: She denies any smoking, drugs or alcohol. FAMILY HISTORY: None. REVIEW OF SYSTEMS: All within normal except history of present illness. PHYSICAL EXAMINATION: HEENT: Within normal. LUNGS: CTA bilaterally. CARDIOVASCULAR: S1, S2, regular rhythm. ABDOMEN: Gravid, nontender. Negative CVA bilateral. EXTREMITIES: Negative. No calf tenderness. PELVIC: Vaginal exam 6 to 7 cm dilated, 90% effaced, -2 station, intact. heart tracing catego ry 1. [place], regular contractions. ASSESSMENT: Intrauterine at term in labor. PLAN: Anticipated vaginal delivery. GBS prophylaxis. Dictated By: ABDULKADIR PHILIPPE/RYANNE Conf#: [id number] DID#: [id number] CC: ABDULKADIR KAMARA MD;*EndCC*
[2019-02-17] MEDS ORDERED: LANOLIN HPA 1 PKT TOP PRN (08:30)
[2019-02-17] MEDS ORDERED: ACETAMINOPHEN 325 MG TAB PO PRN (08:30)
[2019-02-17] MEDS ORDERED: NACL 0.9% 3 ML SYG IV SCH (08:30)
[2019-02-17] MEDS ORDERED: ONDANSETRON 4 MG INJ IV PRN (08:30)
[2019-02-17] MEDS ORDERED: SENNA/DOCUSATE NA (8.6MG/50MG) TAB PO PRN (08:30)
[2019-02-17] MEDS: SENNA/DOCUSATE NA (8.6MG/50MG) TAB PO SCH ×2 (09:00→20:56)
[2019-02-17 10:00] VITALS: BP 123/73; PULSE 82; RESP 18
[2019-02-17 11:00] VITALS: BP 121/79; PULSE 86; RESP 18
[2019-02-17] MEDS: IBUPROFEN 800 MG TAB PO SCH ×3 (11:40→23:52)
[2019-02-17 12:00] VITALS: BP 111/66; PULSE 84; RESP 18
[2019-02-17] MEDS: WITCH HAZEL/GLYCERIN PAD PR PRN (12:38)
[2019-02-17] MEDS: BENZOCAINE 20% 56 ML SPRAY TOP PRN (12:38)
--- NOTE | 2019-02-17 14:26 | PAC ---
Date/Time of Note Date/Time of Note DATE: 02/17/19 TIME: 14:26 Post-Anesthesia Notes Post-Anesthesia Note Last documented vital signs Vital Signs Date Temp Pulse Resp B/P (MAP) Pulse Ox O2 O2 Flow FiO2 Time Delivery Rate 02/17/19 98.8 86 18 121/79 Room Air 11:00 (93) Activity: WNL Respiratory function: WNL Cardiovascular function: WNL Mental status: Baseline Pain reasonably controlled: Yes Hydration appropriate: Yes Nausea/Vomiting absent: Yes FANNIE DUMONT DO February 17, 2019 14:26
[2019-02-17 15:43] VITALS: BP 101/61; PULSE 83; RESP 18
[2019-02-17 19:45] VITALS: BP 113/65; PULSE 62; RESP 19
[2019-02-18] MEDS: LACTATED RINGER'S 1,000 ML IV SCH (03:47)
[2019-02-18 04:00] VITALS: BP 105/65; PULSE 82; RESP 18
[2019-02-18] MEDS: IBUPROFEN 800 MG TAB PO SCH ×4 (05:47→23:37)
--- NOTE | 2019-02-18 06:07 | DS ---
Date/Time of Note Date/Time of Note DATE: 02/18/19 TIME: 06:07 Obstetrical Discharge Record Final Diagnosis Final Diagnosis: Term delivered Vaginal Delivery Obstetrical Delivery: Spontaneous, Laceration, Repaired Condition on Discharge Physical Assessment Last Vitals: stable afebrile Voiding: Yes Bowel Movement: Yes Breast: Soft, non-tender, Filling Fundus: Firm Abdomen and Incision: soft nt Calf Tenderness: No Patient Condition: Fair ABDULKADIR KAMARA MD February 18, 2019 06:07
--- NOTE | 2019-02-18 06:08 | PD.PPDC ---
READING INTERVENTIONIST Discharge Instruction Condition [id number] Patient Condition: Unbpx1s Fair Diet Fnisz1Kj Diet: Idgtx9e Resume Regular Diet Activity/Restrictions Dewdp0Gy Activity: Pakmg4v Normal Activity May Shower Ncdos2Cy Restrictions: Xjaak3l No Exercising No Lifting No Driving No Sexual Activity Nothing in the Vagina No [place] No Tampons, douche Follow-up Follow-up with Physician: 3, Week/Weeks Return to clinic for [id number] [employer] CAR [employer]ER Instructions: Tufom4r Fever greater than 101 Chills Worsening abdominal pain Excessive Vaginal Bleeding More than 2 pads per hour Unable to tolerate diet [id number] OB Instructions: Ydkip4m Breast Tenderness Depression Blurried Vision Headache [id number] Surgical Instructions: Ucbys3i Incisional Drainage Incisional Redness ABDULKADIR KAMARA MD February 18, 2019 06:08
[2019-02-18 08:20] VITALS: BP 107/68; PULSE 79; RESP 16
[2019-02-18] MEDS: SENNA/DOCUSATE NA (8.6MG/50MG) TAB PO SCH ×2 (08:46→20:41)
[2019-02-18 15:50] VITALS: BP 112/72; PULSE 86; RESP 18
[2019-02-18 19:40] VITALS: BP 113/82; PULSE 84; RESP 19
[2019-02-19 04:06] VITALS: BP 103/60; PULSE 65; RESP 18
[2019-02-19] MEDS: IBUPROFEN 800 MG TAB PO SCH ×2 (05:26→12:28)
[2019-02-19 08:00] VITALS: BP 104/69; PULSE 87; RESP 18
[2019-02-19] MEDS: SENNA/DOCUSATE NA (8.6MG/50MG) TAB PO SCH (08:45)
[2019-02-19] MEDS: BENZOCAINE 20% 56 ML SPRAY TOP PRN (10:43)
[2019-02-19] MEDS: WITCH HAZEL/GLYCERIN PAD PR PRN (10:43)
--- NOTE | 2019-02-20 14:38 | DELSUM ---
Delivery Summary A-C Datetime Report Generated by CPN: 02/20/2019 14:38 DELIVERY PERSONNEL Foster Parent: Jv, Bia MATERNAL INFORMATION Delivery Anesthesia: Epidural Medications in Delivery: OXYTOCIN 30UNITS Delivery QBL (ml): 250 Placenta Cultured: No Maternal Complications: None LABOR SUMMARY EDC: 02/22/2019 00:00 No. Babies in Womb: 1 Attempted: No Labor Anesthesia: Epidural LABOR INFORMATION Reason for Induction: Not Applicable Onset of Labor: 02/16/2019 22:30 Complete Dilatation: 02/17/2019 07:51 Oxytocin: N/A Group B Beta Strep: Positive Antibiotics # of Doses: 1 Antibiotics Time of Last Dose: 02/17/2019 04:25 Steroids Given: None Reason Steroids Not Administered: Not Applicable MEMBRANES Membranes Rupture Method: Artificial Rupture of Membranes: 02/17/2019 05:20 Length of Rupture (hr): 2.60 Amniotic Fluid Color: Clear Amniotic Fluid Amount: Moderate Amniotic Fluid Odor: None STAGES OF LABOR Stage 1 hr: 9 Stage 1 min: 21 Stage 2 hr: 0 Stage 2 min: 5 Stage 3 hr: 0 Stage 3 min: 6 Total Time in Labor hr: 9 Total Time in Labor min: 32 VAGINAL DELIVERY Laceration Extension: First Degree Laceration Type: Perineal Laceration Repair: Yes Initial Vag Sponge Count: 10 Final Vag Sponge Count: 10 Initial Vag Sharps Count: 4 Final Vag Sharps Count: 4 Sponge Count Correct: Yes; Vaginal Sweep Performed Sharps Count Correct: Yes BABY A INFORMATION Delivery Date/Time: 02/17/2019 07:56 Method of Delivery: Vaginal Born in Route : No : N/A Forceps: N/A Vacuum Extraction: N/A Shoulder Dystocia : N/A SHOULDER DYSTOCIA BABY A Infant Delivery Date/Time: 02/17/2019 07:56 PRESENTATION/POSITION BABY A Presentation: Cephalic Cephalic Presentation: Vertex Vertex Position: Left Occipital Anterior Breech Presentation: N/A PLACENTA INFORMATION BABY A Placenta Delivery Time : 02/17/2019 08:02 Placenta Method of Delivery: Spontaneous Placenta Status: Delivered SCORES BABY A Heart Rate 1 min: >100 bpm Resp Effort 1 min: Good Cry Reflex Irritability 1 min: Cough/Sneeze/Pulls Away Muscle Tone 1 min: Active Motion Color 1 min: Body [place], Extremit Blue Resuscitation Effort 1 min: Tactile Stimulation SCORE 1 MIN: 9 Heart Rate 5 min: >100 bpm Resp Effort 5 min: Good Cry Reflex Irritability 5 min: Cough/Sneeze/Pulls Away Muscle Tone 5 min: Active Motion Color 5 min: Body [place], Extremit Blue Resuscitation Effort 5 min: Tactile Stimulation SCORE 5 MIN: 9 INFORMATION BABY A Gestational Age at Delivery: 39.2 Gestational Status: Full Term- 39- 40.6 Weeks Outcome : Liveborn Infant Condition : Stable Infant Sex: Female IDENTIFICATION/MEDS BABY A ID Band Number: [id number] ID Band Location: Right Leg; Left Arm Sensor Applied: Yes Sensor Number: [id number] Sensor Location : Cord Clamp Vitamin K Given : Not Given Erythromycin Given: Not Given WEIGHT/LENGTH BABY A Infant Birthweight (gm): 3405 Weight (lb): 7 Weight (oz): 8 Infant Length (in): 19.25 Infant Length (cm): 48.90 CORD INFORMATION BABY A No. Cord Vessels: 3 Nuchal Cord : N/A Cord Blood Taken: Yes Suction: Mouth; Nose ASSESSMENT BABY A Infant Complications: None Physical Findings at Delivery: Caput Succedaneum Infant Respirations: Appears Normal Marine Structural Designer/ALS Called : No Care By: JOHNIE DUGGAN Transferred To: Remains with Mother
== END 2019-02-19 13:45 | disposition home or self-care (01) | DRG 807 ==
LOC: OBT 03:20 → L-D 03:20 → OBT 03:47 → L-D 03:47 → PP1 09:50
PROVIDERS: ADMIT Obstetrics & Gynecology; ATTEND Obstetrics & Gynecology
PROC: 10E0XZZ Delivery of Products of Conception, External Approach (ICD-10-PCS; principal; 2019-02-17)
PROC: 0HQ9XZZ Repair Perineum Skin, External Approach (ICD-10-PCS; 2019-02-17)
DX: O70.0 First degree perineal laceration during delivery (principal); Z37.0 Single live birth; Z3A.38 38 weeks gestation of pregnancy
CPT/HCPCS: 36415; 62322; 76815; 85025; 85610; 85730; 86592; 86850; 86900; 86901; 87340; G0463; J0290; J0595; J2210; J2590; J3010; J7120